=== PATIENT | female | born 2005 | race Caucasian/White ===

== ENCOUNTER 2025-03-25 23:28 | Emergency (ER) | payer SELFPAY ==
[2025-03-25 23:32] VITALS: BP 111/56; PULSE 80; RESP 18; TEMP 36.6; O2SAT 97; BMI 31.8
--- NOTE | 2025-03-25 23:59 | XR_ITS ---
PROCEDURE INFORMATION: Exam: XR Left Foot Exam date and time: 03/26/2025 12:06 AM Age: 20 years old Clinical indication: Pain; Foot; Left; Additional info: Atraumatic left 1st mcp pain TECHNIQUE: Imaging protocol: Radiologic exam of the left foot. Views: 3 or more views. COMPARISON: No relevant prior studies available. FINDINGS: Bones/joints: No acute fracture or dislocation. Soft tissues: Normal. IMPRESSION: No acute fracture or dislocation.
[2025-03-26] MEDS: ACETAMINOPHEN 500MG TAB 1000 MG PO (00:11)
--- NOTE | 2025-03-26 00:13 | ED_ITS ---
Discharge Plan Disposition Patient Disposition: Home, Self-Care Prescriptions Prescriptions: New lidocaine 5 % adhesive patch,medicated 1 patch topical DAILY PRN (Reason: pain) Qty: 30 0RF Rx Instructions: leave on most painful area for up to 12 hrs Referrals Follow up/Referrals: Provider,Referral, [Primary Care Provider, Medical] - See instructions Activity Restrictions/Add. Instructions Additional Instructions/Restrictions: Please follow-up with your primary care provider. Please return to the emergency department if you develop any new or worsening symptoms or become concerned for your health. Clinical Impressions Clinical Impression: Acute pain of left foot Print Language Print Language: Grenadian Discharge ED Provider: Joe Win General Adult HPI General Chief complaint: Extremity Injury, Lower Stated complaint: L foot pain Time Seen by Provider: 03/25/25 23:45 Mode of Arrival: Wheelchair Source of Information: Patient Description of Symptoms (Recalled from ER Triage Doc. by RN): Pt states she was sitting at home when she had a sudden pain at the great toe joint that radiates through the top of her foot. Pt describes it as a pulsating pain that is worse with ambulation. Pt tried to ice, elevate and ibuprophen with no relief. History of Present Illness HPI narrative: 20-year-old female with no reported past medical history presents for a few hours of atraumatic left foot pain. She reports the pain started in her left MCP and is radiating up the foot. He denies any recent trauma. Denies any history of infection. She tried ibuprofen and elevation at home without significant relief. She is having pain with walking. She denies any personal past medical history, but does report that her mom and great aunt have gout. Related Data Previous Rx's ?Medication ?Instructions ?Recorded lidocaine 5 % topical patch 1 patch topical DAILY PRN pain #30 03/26/25 ea Allergies Allergy/AdvReac Type Severity Reaction Status Date / Time No Known Allergies Allergy Verified 10/25/24 15:14 [facility] Disclaimer: The information contained in this section may have been updated after the patient was seen, as this information can be updated by other users. Medical History (Updated 03/26/25 @ 00:17 by Joe Win MD) Hx of acute endometritis Surgical History (Updated 10/25/24 @ 15:19 by Bjorn Grace MA) No significant past surgical history Social History (Updated 10/25/24 @ 15:54 by Maria Keen DO) Smoking Status: Current every day smoker alcohol intake: never current occupational status: unemployed Travel in the last 8 weeks?: None Have you lived/traveled outside [place] in past 30 days?: No Contact w/someone who lives/traveled outside [place] past 30 days?: No Exposure to someone with infectious disease in past 14 days?: No Do you have a fever (greater than 100.4 F or 38 C)?: No Have you tested positive for COVID-19?: No Exposed to someone with COVID-19 in past 14 days?: No Do you have a sore throat?: No Do you have a cough?: No Do you have any weakness?: No Do you have any diarrhea?: No Are you experiencing any unusual bleeding?: No Do you have any muscle aches/pain?: Yes Do you have any abdominal pain?: No Are you experiencing loss of taste or smell?: No ROS Obtained: Yes All systems reviewed & no additional complaints except as documented Physical Exam General General appearance: alert and in no apparent distress Head Head exam: atraumatic and normocephalic Eye Eye exam: Present normal appearance, PERRL and EOMI ENT ENT exam: Present normal oropharynx and normal external ear exam Neck Neck exam: Present normal inspection and full ROM Chest Chest inspection: Present normal inspection and symmetric chest wall rise; Absent tenderness Respiratory Respiratory exam: Present normal lung sounds bilaterally; Absent respiratory distress Cardiovascular Cardiovascular exam: Present regular rate and normal rhythm Abdominal Exam Abdominal exam: Present soft; Absent distention, tenderness or guarding Extremities Exam Extremities exam: Present normal inspection and tenderness (Significant tenderness to palpation of the left first MCP and medial aspect of the foot. No erythema, swelling, laceration or other visible abnormalities); Absent edema or joint swelling Back Exam Back exam: Present normal inspection; Absent tenderness Neurological Exam Neurological exam: Present alert and oriented X3; Absent motor sensory deficit Psychiatric Psychiatric exam: Present normal affect and normal mood Skin Skin exam: Present warm, dry and normal color Lymphatic Lymphatic Findings: no adenopathy Medical Decision Making Medical Records Medical records reviewed: Yes I reviewed the patient's medical records. Screening: Per USPSTF and CDC recommendations, given the prevalence of disease in our region, it is our hospital?s policy to screen for HIV and viral Hepatitis for all patients aged 18 and over and those with ongoing risk factors. Camilo Inquiry Pt receiving controlled substance: No Camilo was queried for this patient: No Vital Signs: 03/25/25 23:32 03/26/25 00:21 03/26/25 00:23 Temperature 98 F 97.9 F 97.9 F Temperature Source Oral Oral Pulse Rate 78 78 Pulse Rate [Left] 80 Respiratory Rate 18 14 14 Blood Pressure 120/78 120/78 Blood Pressure [Right Arm] 111/56 L Blood Pressure Mean [Right Arm] 74 Blood Pressure Source [Right Arm] Automatic Cuff Blood Pressure Position Sitting Blood Pressure Position [Right Arm] Sitting 02 Sat by Pulse Oximetry 97 98 Oxygen Delivery Method Room Air Room Air Room Air Lab Data Lab results reviewed: Yes I reviewed the patient's lab results. Orders (Tests/Meds): ED MEDICATIONS Discontinued Medications Generic Name Dose Route Start Last Admin Trade Name Freq PRN Reason Stop Dose Admin Acetaminophen 1,000 mg 03/26/25 00:01 03/26/25 00:11 Acetaminophen 500mg Tab PO 03/26/25 00:02 1,000 mg ONCE ONE Administration Lidocaine 1 each 03/26/25 00:14 03/26/25 00:22 Lidocaine 5% Transdermal Patch TD 03/26/25 00:15 1 each ONCE ONE Administration ORDERS Category Date Time Status Foot XR left minimum 3 views [XR foot LT min 3V] Stat Exams 03/25/25 23:59 Completed Medical Decision Narrative: 20-year-old female with no personal past medical history presents for a few hours of acute left atraumatic foot pain. History was obtained via interactive discussion with patient, family, chart review. On arrival, patient is [afebrile, hemodynamically stable, satting appropriately, alert, oriented x4, GCS 15], moving all extremities spontaneously. Full physical exam performed and significant for tenderness to palpation of the left first MCP joint and medial foot, no overlying erythema swelling laceration or other signs of trauma injury or infection. Radiograph of the left foot was obtained and independently interpreted by me, no evidence of acute fracture or other abnormality. Differential includes but is not limited to fracture, dislocation, infection, gout. The underlying etiology of the patient's presentation is unclear. Patient does have a family history of gout, but she is young and has no personal history of gout. Furthermore, there is no physical exam evidence for gout or infection besides tenderness to palpation. Recommended she take scheduled Tylenol and ibuprofen over the next week or so. She was given Tylenol here as well as lidocaine patches. Recommend she follow-up with PCP for further assessment. Return precautions given. Procedures Risk/Benefits of Procedure(s) Were Explained: Yes Critical Care Critical Care Time Critical Care Time: No
[2025-03-26 00:21] VITALS: BP 120/78; PULSE 78; RESP 14; TEMP 36.6; O2SAT 98
[2025-03-26] MEDS: LIDOCAINE 5% TRANSDERMAL PATCH 1 EACH TD (00:22)
[2025-03-26 00:23] VITALS: BP 120/78; PULSE 78; RESP 14; TEMP 36.6; O2SAT 98
== END 2025-03-26 00:32 | disposition home or self-care (01) ==
PROVIDERS: Emergency Provider Emergency Medicine
DX: M79.672 Pain in left foot (principal)
CPT/HCPCS: 73630; 99283